=== PATIENT | female | born 1985 ===

== ENCOUNTER 2017-11-27 10:46 | Emergency (ER) | payer MEDICAID ==
[2017-11-27 10:49] VITALS: BMI 31.6
[2017-11-27 10:50] VITALS: RESP 17
[2017-11-27] MEDS ORDERED: Sodium Chloride 0.9% 1,000 ML IV STA (11:14)
--- NOTE | 2017-11-27 11:25 | ED PDOC ---
HPI: Female Pain Time Seen by Provider: 11/27/17 11:16 Chief Complaint (Nursing): Female Genitourinary Chief Complaint (Provider): vaginal bleeding History Per: Patient (32 y/o female here with vaginal bleeding today. Patient has had prior ultrasound by [facility] last week demonstrating 10 week gestation. Denies any abdominal pain. Notes bleeding is minimal now.) Past Medical History Reviewed: Historical Data, Nursing Documentation, Vital Signs Vital Signs: Last Vital Signs Temp 99.1 F 11/27/17 10:49 Pulse 95 H 11/27/17 10:49 Resp 17 11/27/17 10:49 BP 117/75 11/27/17 10:49 Pulse Ox 98 11/27/17 10:49 - Family History Family History: States: No Known Family Hx - Immunization History Hx Tetanus Toxoid Vaccination: No Hx Influenza Vaccination: No Hx Pneumococcal Vaccination: No - Allergies Allergies/Adverse Reactions: Allergies Allergy/AdvReac Type Severity Reaction Status Date / Time No Known Allergies Allergy Verified 11/27/17 10:58 Review of Systems ROS Statement: Except As Marked, All Systems Reviewed And Found Negative Physical Exam - Reviewed Nursing Documentation Reviewed: Yes Vital Signs Reviewed: Yes - Physical Exam Appears: Positive for: Well, Non-toxic, No Acute Distress Head Exam: Positive for: ATRAUMATIC, NORMAL INSPECTION, NORMOCEPHALIC Skin: Positive for: Normal Color, Warm, DRY Eye Exam: Positive for: EOMI, Normal appearance, PERRL ENT: Positive for: Normal ENT Inspection Neck: Positive for: Normal, Painless ROM Cardiovascular/Chest: Positive for: Regular Rate, Rhythm Respiratory: Positive for: CNT, Normal Breath Sounds Gastrointestinal/Abdominal: Positive for: Normal Exam, Soft Back: Positive for: Normal Inspection Extremity: Positive for: Normal ROM Neurologic/Psych: Positive for: Alert, Oriented - Laboratory Results Result Diagrams: 11/27/17 11:20 11/27/17 11:20 - ECG O2 Sat by Pulse Oximetry: 98 - Progress ED Course And Treament: US OB: 12 WEEK LIUP FHR 140 BLOOD TYPE O POS Disposition - Clinical Impression Clinical Impression: Threatened miscarriage - Patient ED Disposition Is Patient to be Admitted: No - Disposition Disposition: Routine/Home Disposition Time: 14:42 Condition: FAIR Instructions: Threatened Miscarriage, Bleeding With (DC) Forms: [employer] (Croatian) Print Language: ENGLISH
[2017-11-27 11:36] LABS: BASO # 0.1 K/uL (0.0-0.2); BASO % 0.7 % (0.0-2.0); EOS # 0.1 K/uL (0.0-0.7); EOS % 1.1 % (0.0-4.0); HEMOGLOBIN 13.1 g/dL (12.0-16.0); LYMPH # 2.1 K/uL (1.0-4.3); LYMPH % 16.7 % (20.0-40.0); MEAN CELL VOLUME 88.1 fl (81.0-99.0); MEAN CORPUSCULAR HEMOGLOBIN 29.8 pg (27.0-31.0); MEAN CORPUSCULAR HGB CONC 33.8 g/dL (33.0-37.0); MEAN PLATELET VOLUME 8.2 fl (7.2-11.7); MONO # 0.7 K/uL (0.0-0.8); MONO % 5.6 % (0.0-10.0); NEUT # 9.8 K/uL (1.8-7.0); NEUT % 75.9 % (50.0-75.0); NRBC % 0.1 % (0.0-0.0); RBC 4.4 Mil/uL (3.80-5.20); RED CELL DISTRIBUTION WIDTH 13.2 % (11.5-14.5); WHITE BLOOD COUNT 12.9 K/uL (4.8-10.8)
[2017-11-27 11:50] LABS: BLOOD UREA NITROGEN 5 mg/dl (7-17); CALCIUM 9.1 mg/dL (8.4-10.2); GFR AFRICAN-AMERICAN > 60; GFR NON-AFRICAN AMERICAN > 60
[2017-11-27 14:40] VITALS: BP 118/77; PULSE 84; TEMP 98.1
[2017-11-27 14:43] VITALS: O2SAT 98
--- NOTE | 2017-11-27 17:32 | US ---
PROCEDURE: HISTORY: threatened miscarriage COMPARISON: TECHNIQUE: FINDINGS: Single live intrauterine fetus with a mean gestational age of 12 weeks and 2 days. Positive heart motion at 140 beats per minute. IMPRESSION: As above.
== END 2017-11-27 15:00 | disposition home or self-care (01) ==
LOC: H.ER 10:46
DX: O20.0 Threatened abortion (principal); Z3A.10 10 weeks gestation of pregnancy; Z36.9 Encounter for antenatal screening, unspecified
CPT/HCPCS: 76815; 80048; 81025; 84702; 85025; 86850; 86900; 96360; 96361; 99285; J7040